=== PATIENT | male | born 1975 | race Caucasian/White ===

== ENCOUNTER → 2021-08-30 00:25 | Outpatient (CLI) | payer OTHER, SELFPAY ==
[2021-08-30 17:38] LABS: SARS-CoV-2 RNA PCR Negative
== END ==
PROVIDERS: Visit Provider Internal Medicine Gastroenterology
DX: Z01.812 Encounter for preprocedural laboratory examination (principal); Z20.822 Contact with and (suspected) exposure to COVID-19
CPT/HCPCS: C9803; U0003; U0005

== ENCOUNTER 2021-09-02 01:39 | Day surgery (SDC) | payer OTHER, SELFPAY ==
[2021-08-19 14:09] VITALS: BMI 25.8
[2021-09-02 10:21] VITALS: BP 133/89; PULSE 68; RESP 20; TEMP 36.4; O2SAT 100; BMI 25.2
[2021-09-02] MEDS: LACTATED RINGERS 1,000 ML 150 ML IV CONT (10:29)
--- NOTE | 2021-09-02 10:42 | WPDANESEPPF ---
Anes - Initial Pre Proc Eval Procedure: Operation Date: 09/02/21 11:30 Proposed Procedures p Colonoscopy - Cody Lai MD Date/Time: 09/02/21 10:42 Surgeon: Cody Lai MD Pre Op Diagnosis: Rectal Bleeding Patient Data Age: 46 Gender: M Height: 1.83 m Weight: 84.4 kg Last Vital Signs Temp 97.5 F L 09/02/21 10:21 Pulse 68 09/02/21 10:21 Resp 20 09/02/21 10:21 BP 133/89 09/02/21 10:21 Pulse Ox 100 09/02/21 10:21 Allergies Allergy/AdvReac Type Severity Reaction Status Date / Time No Known Allergies Allergy Verified 09/02/21 10:20 Patient hx anesthesia problems: none Family hx anesthesia problems: none Results Review: All pre-operative results and documents have been reviewed as part of the pre-operative evaluation. [facility] Family History Family History (Updated 08/25/18 @ 08:09 by DOCTOR UNKNOWN) Other Family history of malignant neoplasm Social History Social History Smoking status: Never smoker Alcohol intake: current Living arrangements: with family Spiritual care concerns: No Anes - Eval Final PreProcedure Day of Procedure 09/02/21 10:42 Patient weight: overweight Heart: regular rate and rhythm Lungs: clear to auscultation Airway: Mallampati scale class II Neurological: alert and oriented Last oral intake: >/= 8 hours ASA classification: II Emergent: no Anesthetic plan: proceed Anesthesia type and monitoring: general GIVS and standard monitoring Results Review: All pre-operative results and documents have been reviewed as part of the pre-operative evaluation. Informed Consent: The patient's anesthetic plan and its attendant risks and benefits were discussed with the patient/family/POA. Questions were solicited and answers provided to the satisfaction of the patient/family/POA.
--- NOTE | 2021-09-02 11:00 | WPDGICN ---
Assessment and Plan Assessment and plan (1) Family history of colon cancer in mother: Code(s): Z80.0 - Family history of malignant neoplasm of digestive organs Status: Acute Assessment and Plan: Patient has a family history of colon cancer in his mother who had cancer at a young age in her mid 40s. Plan is for surveillance colonoscopy now and at 5 year intervals in the future. Further recommendations will be given after endoscopy. (2) Rectal bleeding: Code(s): K62.5 - Hemorrhage of anus and rectum Status: Acute Assessment and Plan: Rectal bleeding somewhat suspicious for hemorrhoids. Other etiology cannot be excluded. Fiber supplementation such as FiberCon 2 tabs p.o. b.i.d. is advised. Further recommendations may be given after endoscopy. GI Consult Note Consult date/time: 09/02/21 11:00 HPI: Danny Hernandez is a 46 year old male Presents for screening colonoscopy. Patient's family history is significant his mother had colon cancer. Patient has had intermittent colonoscopy since his mid 30s. Last colonoscopy was 8 years ago. He states that there were no significant findings on previous exam. Patient has noticed several episodes of bright red blood per rectum since May of 2021. He denies any abdominal or rectal pain. His bowel habits tend to be normal. He has lost no weight. He denies abdominal or rectal pain. [facility] Family History Family History (Updated 08/25/18 @ 08:09 by DOCTOR UNKNOWN) Other Family history of malignant neoplasm Social History Social History Smoking status: Never smoker Alcohol intake: current Living arrangements: with family Spiritual care concerns: No Meds Home Medications and Allergies Allergies Allergy/AdvReac Type Severity Reaction Status Date / Time No Known Allergies Allergy Verified 09/02/21 10:20 Vital Signs Vital Signs - 24 hr 09/02/21 10:21 Temperature 97.5 F L Pulse Rate 68 Respiratory Rate 20 Blood Pressure 133/89 Pulse Oximetry 100 Exam Narrative: Physical exam reveals patient to be alert. Vital signs stable. HEENT exam is unremarkable. Patient is anicteric. Lungs are clear to auscultation and percussion. Heart is without murmur or extra sounds. Abdominal exam bowel sounds are present soft nontender with no organomegaly. Digital external rectal exam is normal.
[2021-09-02 11:31] VITALS: BP 106/71; PULSE 68; RESP 23; O2SAT 100
[2021-09-02 11:41] VITALS: BP 107/67; PULSE 66; RESP 21; O2SAT 100
[2021-09-02 11:51] VITALS: BP 121/84; PULSE 67; RESP 23; O2SAT 94
== END 2021-09-02 12:01 | disposition home or self-care (01) ==
PROVIDERS: Visit Provider Internal Medicine Gastroenterology
PROC: 0DJD8ZZ Inspection of Lower Intestinal Tract, Via Natural or Artificial Opening Endoscopic (ICD-10-PCS; CPT 45378; principal; 2021-09-02 11:30)
DX: Z12.11 Encounter for screening for malignant neoplasm of colon (principal); K62.5 Hemorrhage of anus and rectum; K64.8 Other hemorrhoids; K57.30 Diverticulosis of large intestine without perforation or abscess without bleeding; D12.3 Benign neoplasm of transverse colon; Z80.0 Family history of malignant neoplasm of digestive organs
CPT/HCPCS: 45385; 88305; J2704; J7120

== ENCOUNTER 2022-02-09 12:58 | Emergency (ER) | payer OTHER, SELFPAY ==
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
[2022-02-09 13:03] VITALS: BP 157/103; PULSE 95; RESP 14; TEMP 36.6; O2SAT 99
[2022-02-09 13:57] VITALS: BP 147/98; PULSE 78; RESP 18; TEMP 36.8; O2SAT 100
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
== END 2022-02-09 16:11 | disposition home or self-care (01) ==
PROVIDERS: Emergency Provider Emergency Medicine
DX: S29.011A Strain of muscle and tendon of front wall of thorax, initial encounter (principal); X50.9XXA Other and unspecified overexertion or strenuous movements or postures, initial encounter
CPT/HCPCS: 73030; 99283; A4565